=== PATIENT | female | born 1955 | race Hispanic/Latino ===

== ENCOUNTER 2017-05-02 20:19 | Emergency (ER) | payer BC ==
[2017-05-02] MEDS ORDERED: Lidocaine Viscous Sol 2% 15 ml UD Cup ONE (20:59)
[2017-05-02] MEDS ORDERED: Mag-Al 1200 mg/1200 mg/30 ML UDCUP ONE ×2 (20:59→22:44)
[2017-05-02] MEDS ORDERED: Ondansetron ODT 8 MG TAB ONE (20:59)
[2017-05-02] MEDS ORDERED: Lidocaine 2% Viscous Solution 10 ML, Aluminum & Magnesium Hydroxide 20 ML, Donnatal Eli... SSW SCH ×3 (21:15)
[2017-05-02] MEDS ORDERED: Ondansetron HCl/PF 4 MG/2 ML Vial ONE (21:37)
== END 2017-05-02 23:57 | disposition home or self-care (01) ==
LOC: ERS 20:19
DX: K52.9 Noninfective gastroenteritis and colitis, unspecified (principal); F41.9 Anxiety disorder, unspecified; F31.9 Bipolar disorder, unspecified
CPT/HCPCS: 96361; 96374; J2405

== ENCOUNTER 2018-06-17 19:34 | Emergency (ER) | payer BC ==
--- NOTE | 2018-06-17 22:05 | CT ---
BRAIN CT WITHOUT IV CONTRAST: HISTORY: A 62-year-old female with a history of injury from a fall. FINDINGS: No focal mass or midline shift. No intraaxial or extraaxial hemorrhage. The sinuses and mastoids ar e clear. IMPRESSION: No acute intracranial process. POS: [facility]
--- NOTE | 2018-06-17 22:06 | CT ---
CT CERVICAL SPINE WITHOUT IV CONTRAST: HISTORY: A 62-year-old female with a history of a cervical injury following a fall. FINDINGS: There are some generalized disk osteophytosis changes throughout the cervical spine. Facet arthrosis changes are noted. No acute fracture, dislocation, or significant malalignment. No significant pre vertebral soft tissue swelling. IMPRESSION: Cervical spondylosis without acute fracture or dislocation. POS: [facility]
== END 2018-06-17 23:17 | disposition home or self-care (01) ==
LOC: ERS 19:34
DX: S01.81XA Laceration without foreign body of other part of head, initial encounter (principal); E11.9 Type 2 diabetes mellitus without complications; F32.9 Major depressive disorder, single episode, unspecified; W01.0XXA Fall on same level from slipping, tripping and stumbling without subsequent striking against object, initial encounter
CPT/HCPCS: 12011; 70450; 72125

== ENCOUNTER 2024-06-08 20:05 | Emergency (ER) | payer BC, MEDICARE ==
[2024-06-08 21:59] LABS: #Basophils Less than 0.03 10x3/uL (0.0-0.2); %Basophils 0.4 % (0.0-1.0); %Eosinophils 4.6 % (0.0-10.0); %Lymphocytes 29.9 % (21.0-51.0); %Monocytes 9.7 % (0.0-10.0); %Neutrophils 55.2 % (42.0-75.0); Hematocrit 38.9 % (36.0-47.0); Hemoglobin 13.9 g/dL (12.0-16.0); Mean Corpuscular HGB CONC 35.7 g/dL (32.0-36.0); Mean Corpuscular Hemoglobin 33.9 pg (27.0-31.0); Mean Corpuscular Volume 94.9 fL (78.0-98.0); Mean Platelet Volume 11.3 fL (7.4-10.4); Platelet Count 217 10x3/uL (130-400); RBC Distribution Width 11.8 % (11.5-14.5)
[2024-06-08 22:14] LABS: ALT (SGPT) 18 U/L (8-55); AST (SGOT) 18 U/L (5-34); Albumin 4.3 g/dL (3.4-4.8); Alkaline Phosphatase 82 U/L (40-110); Anion Gap 17 mmol/L (10-20); BUN (Urea Nitrogen) 17 mg/dL (9.8-20.1); Bilirubin, Total 0.4 mg/dL (0.2-1.2); Calc. Creatinine Clearance 0 mL/min (70-130); Calcium 9.5 mg/dL (7.8-10.44); Carbon Dioxide 23 mmol/L (23-31); Chloride 103 mmol/L (98-107); Estimated GFR 67; Globulin 3.1 g/dL (2.4-3.5); Glucose 118 mg/dL (80-115); Potassium 3.7 mmol/L (3.5-5.1); Protein, Total 7.4 g/dL (5.8-8.1); Sodium 139 mmol/L (136-145)
[2024-06-08 22:19] LABS: Troponin I Less than 0.010 ng/mL (< 0.028)
== END 2024-06-08 23:20 | disposition home or self-care (01) ==
LOC: ERS 20:05
DX: R06.02 Shortness of breath (principal)
CPT/HCPCS: 36415; 71045; 71275; 80053; 83605; 84484; 85025; 87040; 87428; 93005